=== PATIENT | female | born 1990 | race Two or more races ===

== ENCOUNTER 2024-10-02 20:45 | Emergency (ER) | payer MEDICAID, OTHER ==
[~2024-10-02] VITALS: Ht 154.9 cm; Wt 71.2 kg
--- NOTE | 2024-10-02 21:48 | DVH ---
CLINICAL INDICATION: 2nd digit pain TECHNIQUE: XY Left HAND 2V XRAY Comparison: None FINDINGS/IMPRESSION: There is no evidence of acute fracture or dislocation. No radiopaque foreign body identified. Focal soft tissue swelling is seen in the distal 2nd digit
[2024-10-03 00:30] VITALS: BP 143/81; PULSE 83; RESP 18; TEMP 98.9; O2SAT 98
[2024-10-03] MEDS ORDERED: ACET500T58 PO (03:46)
[2024-10-03] MEDS ORDERED: AMOX875T4 PO (03:46)
--- NOTE | 2024-10-03 03:46 | ED.PDOC ---
Musculoskeletal HPI Comments 33-YEAR-OLD FEMALE PRESENTS TO ER WITH LEFT 2ND FINGER PAIN X1 WEEK. PATIENT REPORTS SHE STARTED EXPERIENCING PAIN/SWELLING/BRUISING TO LEFT 2ND FINGER ONE WEEK AGO S/P PICKING UP A "30 LB BOX WITH HER LEFT HAND". SHE RATES HER CURRENT PAIN A 9/10 TO LEFT 2ND FINGER WITHOUT RADIATION. NOTES SHE HAS BEEN TAKING ADVIL FOR HER PAIN WITHOUT RELIEF. DENIES FEVER, NUMBNESS/TINGLING, SKIN DRAINAGE OR ANY FURTHER SYMPTOMS/COMPLAINTS Chief Complaint: Upper Extremity Time Seen by MD: 21:23 Primary Care Provider: UNKNOWN Reviewed Notes: Nurses Notes, Medications, Allergies Allergies: Coded Allergies: NO KNOWN ALLERGIES (Unverified , 10/02/24) Home Meds Active Scripts Amoxicillin & Pot Clavulanate (Amoxicillin/Potassium Cla) 875 Mg Tab, 1 TAB PO BID for 7 Days, #14 TAB 0 Refills Prov:PRUDENCIO HORN 10/03/24 Acetaminophen (Acetaminophen) 500 Mg Tab, 500 MG PO Q4HPRN, #30 TAB 0 Refills Prov:PRUDENCIO HORN 10/03/24 Information Source: Patient Mode of Arrival: Ambulatory Last Tetanus: UTD Past Medical History PAST MEDICAL HISTORY: Anxiety, Depression Surgical History: Denies all surgeries Family History Family History: Unknown Social History Smoker: Non-Smoker Alcohol: Denies ETOH Use Drugs: Denies Drug Use Lives In: Home Constitutional: denies: chills, diaphoresis, fatigue, fever, malaise, sweats, weakness, others EENTM: denies: blurred vision, double vision, ear bleeding, ear discharge, ear drainage, ear pain, ear ringing, eye pain, eye redness, hearing loss, mouth pain, mouth swelling, nasal discharge, nose bleeding, nose congestion, nose pain, photophobia, tearing, throat pain, throat swelling, voice changes, others Respiratory: denies: cough, hemoptysis, orthopnea, SOB at rest, shortness of breath, SOB with excertion, stridor, wheezing, others Cardiovascular: denies: chest pain, dizzy spells, diaphoresis, Dyspnea on exert ion, edema, irregular heart beat, left arm pain, lightheadedness, palpitations, PND, syncope, others Gastrointestinal: denies: abdomen distended, abdominal pain, blood streaked bowels, constipated, diarrhea, dysphagia, difficulty swallowing, hematemesis, melena, nausea, poor appetite, poor fluid intake, rectal bleeding, rectal pain, vomiting, others Genitourinary: denies: abnormal vagina bleeding, burning, dyspareunia, dysuria, flank pain, frequency, hematuria, incontinence, pain, , vagina discharge, urgency, others Neurological: denies: dizziness, fainting, headache, left sided numbness, left sided weakness, numbness, paresthesia, pre-existing deficit, right sided numbness, right sided weakness, seizure, speech problems, tingling, tremors, weakness, others Musculoskeletal: reports: others ( STATED IN HPI) Integumetry: reports: others ( STATED IN HPI) Allergic/Immunocompromised: denies: Difficulty Healing, Frequent Infections, Hives, Itching, others Hematologic/Lymphatic: denies: anemia, blood clots, easy bleeding, easy bruising, swollen glands, others Endocrine: denies: excessive hunger, excessive sweating, excessive thirst, excessive urination, flushing, intolerance to cold, intolerance to heat, unexplained weight gain, unexplained weight loss, others Psychiatric: denies: anxiety, bipolar disorder, depression, hopeless, panic disorder, schizophrenia, sleepless, suicidal, others Physical Exam General Appearance: No Apparent Distress HEENT: PERRL/EOMI Neck: Full Range of Motion, Non-Tender, Normal Respiratory: Chest Non-Tender, Lungs Clear, No Accessory Muscle Use, No Respiratory Distress, Normal Breath Sounds Cardiovascular: No Murmur, No Gallop, Regular Rate/Rhythm Breast Exam: Deferred Gastrointestinal: NOT DONE Genitalia: Deferred Pelvic: Deferred Rectal: Deferred Extremities: Normal capillary refill, Normal range of motion Musculoskeletal : Extremity Location: Finger 2 (MILD SWELLING/TTP/MILD ERYTHEMA SURROUNDING NAILBED OF LEFT 2ND FINGER. NO FLUCTUANCE/DRAINAGE/NAILBED INJURY NOTED. PATIENT ABLE TO FULLY MOVE ALL FINGERS OF LEFT HAND. PULSES INTACT) Neurologic: Alert, No Motor Deficits, Normal Affect, Normal Mood, No Sensory Deficits Cerebellar Function: Normal Reflexes: Normal Skin: Dry, Warm Peripheral Pulses: 2+ Radial (R), 2+ Radial (L), 2+ Brachial (R), 2+ Brachial (L) Lymphatic: No Adenopathy Was a procedure done? Was a procedure done?: No Sedation Sedation?: No Differential Diagnosis EXT Differential Diagnosis: Fracture, Dislocation, Neurovascular injury X-Ray, Labs, Meds, VS Vital Signs Date Time Temp Pulse Resp B/P (MAP) Pulse Ox O2 Delivery O2 Flow Rate FiO2 10/03/24 00:30 Room Air* 0 21 10/03/24 00:30 98.9 83 18 143/81 (101) 98 98.9 10/02/24 20:57 98.9 83 18 143/81 (101) 98 98.9 PATIENT: LANCE BARRAGANACCT: [id number]: [id number] : 1990 LOC: ER ROOM / BED: / AGE / SEX: 33 / F ADM STATUS: REG ER SERVICE 07 ORDERING PHYSICIAN: PRUDENCIO HORN PROCEDURE(s): LHAN2 - L HAND 2V XRAY REASON: 2nd digit pain ORDER NUMBER(s): [id number], ACCESSION NUMBER(s): [id number] CLINICAL INDICATION: 2nd digit pain TECHNIQUE: XY Left HAND 2V XRAY Comparison: None FINDINGS/IMPRESSION: There is no evidence of acute fracture or dislocation. No radiopaque foreign body identified. Focal soft tissue swelling is seen in the distal 2nd digit ATED BY: SANTIAGO RENTERIA MD DICTATED DATE/TIME: 10/02/242145 SIGNED BY: SANTIAGO RENTERIA MD SIGNED DATE/TIME: 10/02/242145 CC: LEFT HAND X-RAY REVIEWED ADVISED ON ELEVATION AND WARM SOAKS ADVISED TO FOLLOW UP WITH PCP IN 1-2 DAYS PATIENT VERBALIZED UNDERSTANDING AND AGREEABLE WITH CURRENT PLAN OF CARE ADVISED TO RETURN TO ER IMMEDIATELY IF SYMPTOMS WORSEN Images Reviewed?: Images reviewed and evaluated by me Time of 1ST Reevaluation: 01:12 Reevaluation 1ST: N/A Patient Education/Counseling: Diagnosis, Treatment, Prognosis, Need For Follow Up Family Education/Counseling: No Family Present Departure 1 Departure Time of Disposition: 01:36 Impression: Primary Impression: Paronychia of left index finger Disposition: 01 HOME / SELF CARE / HOMELESS Condition: Stable e-Prescriptions Amoxicillin & Pot Clavulanate (Amoxicillin/Potassium Cla) 875 Mg Tab 1 TAB PO BID for 7 Days, #14 TAB 0 Refills Prov: PRUDENCIO HORN 10/03/24 Acetaminophen (Acetaminophen) 500 Mg Tab 500 MG PO Q4HPRN, #30 TAB 0 Refills Prov: PRUDENCIO HORN 10/03/24 Discharged With: Self Critical Care Note Critical Care Time?: No Stability Stability form required: No Heart Score Heart Score: Heart Score Response (Comments) Value History N/A 0 EKG N/A 0 Age N/A 0 Risk Factors N/A 0 Troponin N/A 0 Total 0 PRUDENCIO HORN Oct 03, 2024 03:46
== END 2024-10-03 03:53 | disposition home or self-care (01) ==
LOC: ER 20:45
DX: L03.012 Cellulitis of left finger (principal); Z79.2 Long term (current) use of antibiotics; Z79.899 Other long term (current) drug therapy
CPT/HCPCS: 73120